=== PATIENT | male | born 1955 | race Caucasian/White ===

== ENCOUNTER 2021-03-29 13:22 | Emergency (ER) | payer OTHER, MEDICARE ==
[~2021-03-29] VITALS: Ht 175.3 cm; Wt 95.5 kg
[~2021-03-29 13:22] MED LIST: ASPI81CH49 PO; ATOR40TA75 PO; CELE40TA PO; COLA100C5 PO; HYDR-2541 PO; LISI10TA22 PO; MILK120011 OR; MIRA33504 PO; NORV5TAB PO; OXYC-403 PO; ROXI1TAB2 PO; SENO8.6T5 PO; TRAZ-257 PO; TYLE325T5 PO
--- OUTSIDE RECORDS SUMMARY | 2021-03-29 13:31 | CCD ---
Author Author [facility] Address Unknown Phone Unavailable Care Team Providers Care Canopy Inspector Name Role Phone DUSTY AMATO MD Unavailable Unavailable DUSTY AMATO MD Unavailable Unavailable DUSTY AMATO MD Unavailable Unavailable DUSTY AMATO MD Unavailable Unavailable DUSTY AMATO MD Unavailable Unavailable DUSTY AMATO MD Unavailable Unavailable DUSTY AMATO MD Unavailable Unavailable DUSTY AMATO MD Unavailable Unavailable DUSTY AMATO MD Unavailable Unavailable DUSTY AMATO MD Unavailable Unavailable DUSTY AMATO MD Unavailable Unavailable DUSTY AMATO MD Unavailable Unavailable DUSTY AMATO MD Unavailable Unavailable DUSTY AMATO MD Unavailable Unavailable DUSTY AMATO MD Unavailable Unavailable DUSTY AMATO MD Unavailable Unavailable VANWAGNER, OSKAR DO Unavailable Unavailable VANWAGNER, OSKAR DO Unavailable Unavailable VANWAGNER, OSKAR DO Unavailable Unavailable VANWAGNER, OSKAR DO Unavailable Unavailable VANWAGNER, OSKAR DO Unavailable Unavailable VANWAGNER, OSKAR DO Unavailable Unavailable VANWAGNER, OSKAR DO Unavailable Unavailable VANWAGNER, OSKAR DO Unavailable Unavailable VANWAGNER, OSKAR DO Unavailable Unavailable VANWAGNER, OSKAR DO Unavailable Unavailable VANWAGNER, OSKAR DO Unavailable Unavailable VANWAGNER, OSKAR DO Unavailable Unavailable VANWAGNER, OSKAR DO Unavailable Unavailable VANWAGNER, OSKAR DO Unavailable Unavailable VANWAGNER, OSKAR DO Unavailable Unavailable VANWAGNER, OSKAR DO Unavailable Unavailable Donita Lopez JR, MD Unavailable Unavailable Donita Lopez JR, MD Unavailable Unavailable Donita Lopez JR, MD Unavailable Unavailable Donita Lopez JR, MD Unavailable Unavailable Donita Lopez JR, MD Unavailable Unavailable Donita Lopez JR, MD Unavailable Unavailable Donita Lopez JR, MD Unavailable Unavailable Donita Lopez JR, MD Unavailable Unavailable Jessica VANCE S Tong BENSON Unavailable Unavailable Lopez JR, S Tong BENSON Unavailable Unavailable Jessica VANCE S Tong BENSON Unavailable Unavailable Jessica VANCE S Tong BENSON Unavailable Unavailable Lopez JR, S Tong BENSON Unavailable Unavailable Lopez JR, S Tong BENSON Unavailable Unavailable Lopez JR, S Tong BENSON Unavailable Unavailable Lopez JR, S Tong BENSON Unavailable Unavailable Lopez JR, S Tong BENSON Unavailable Unavailable Jessica VANCE S Tong BENSON Unavailable Unavailable Lopez JR, S Tong BENSON Unavailable Unavailable EMILY, M.D. PULIDO M.D. Unavailable Unavailable EMILY, M.D. PULIDO M.D. Unavailable Unavailable EMILY, M.D. PULIDO M.D. Unavailable Unavailable EMILY, M.D. PULIDO M.D. Unavailable Unavailable EMILY, M.D. PULIDO M.D. Unavailable Unavailable EMILY, M.D. PULIDO M.D. Unavailable Unavailable EMILY, M.D. PULIDO M.D. Unavailable Unavailable EMILY, M.D. PULIDO M.D. Unavailable Unavailable EMILY, M.D. PULIDO M.D. Unavailable Unavailable EMILY, M.D. PULIDO M.D. Unavailable Unavailable EMILY, M.D. PULIDO M.D. Unavailable Unavailable EMILY, M.D. PULIDO M.D. Unavailable Unavailable EMILY, M.D. PULIDO M.D. Unavailable Unavailable EMILY, M.D. PULIDO M.D. Unavailable Unavailable Emily, Pulido Unavailable Unavailable Tiffanie Donell DO Unavailable Unavailable [place], Donell DO Unavailable Unavailable Tiffanie Donell DO Unavailable Unavailable [place] Donell DO Unavailable Unavailable O'DEREJE, OLGA OD Unavailable Unavailable O'DEREJE, OLGA OD Unavailable Unavailable O'DEREJE, OLGA OD Unavailable Unavailable O'DEREJE, OLGA OD Unavailable Unavailable O'DEREJE, OLGA OD Unavailable Unavailable O'DEREJE, OLGA OD Unavailable Unavailable Esa Sánchez MD Unavailable Unavailable Esa Sánchez MD Unavailable Unavailable sEa Sánchez MD Unavailable Unavailable Esa Sánchez MD Unavailable Unavailable Esa Sánchez MD Unavailable Unavailable Esa Sánchez MD Unavailable Unavailable Esa Sánchez MD Unavailable Unavailable Esa Sánchez MD Unavailable Unavailable Esa Sánchez MD Unavailable Unavailable Esa Sánchez MD Unavailable Unavailable Esa Sánchez MD Unavailable Unavailable Esa Sánchez MD Unavailable Unavailable Esa Sánchez MD Unavailable Unavailable Esa Sánchez MD Unavailable Unavailable Esa Sánchez MD Unavailable Unavailable Esa Sánchez MD Unavailable Unavailable Esa Sánchez MD Unavailable Unavailable Esa Sánchez MD Unavailable Unavailable Esa Sánchez MD Unavailable Unavailable Esa Sánchez MD Unavailable Unavailable Esa Sánchez MD Unavailable Unavailable Lent, E [place] LOG INSPECTOR Unavailable Unavailable Lent, E [place] LOG INSPECTOR Unavailable Unavailable Maher, L Man PA Unavailable Unavailable Maher, L Man PA Unavailable Unavailable Maher, L Man PA Unavailable Unavailable Sienkiewycz, L Sariah JOURNEYMAN LINEMAN Unavailable Unavailable Sienkiewycz, L Sariah JOURNEYMAN LINEMAN Unavailable Unavailable Sienkiewycz, L Sariah JOURNEYMAN LINEMAN Unavailable Unavailable Sienkiewycz, L Sariah JOURNEYMAN LINEMAN Unavailable Unavailable Sienkiewycz, L Sariah JOURNEYMAN LINEMAN Unavailable Unavailable Sienkiewycz, L Sariah JOURNEYMAN LINEMAN Unavailable Unavailable Sienkiewycz, L Sariah JOURNEYMAN LINEMAN Unavailable Unavailable BROUGHAL, C GRACE PA Unavailable Unavailable BROUGHAL, C GRACE PA Unavailable Unavailable BROUGHAL, C GRACE PA Unavailable Unavailable BROUGHAL, C GRACE PA Unavailable Unavailable BROUGHAL, C GRACE PA Unavailable Unavailable BROUGHAL, C GRACE PA Unavailable Unavailable Layne, G Dalkeith DO Unavailable Unavailable Layne, G Dalkeith DO Unavailable Unavailable Layne, G Dalkeith DO Unavailable Unavailable Layne, G Dalkeith DO Unavailable Unavailable Layne, G Dalkeith DO Unavailable Unavailable Layne, G Dalkeith DO Unavailable Unavailable Esa Sánchez MD Unavailable Unavailable Esa Sánchez MD Unavailable Unavailable Esa Sánchez MD Unavailable Unavailable Esa Sánchez MD Unavailable Unavailable Esa Sánchez MD Unavailable Unavailable Esa Sánchez MD Unavailable Unavailable Esa Sánchez MD Unavailable Unavailable Esa Sánchez MD Unavailable Unavailable Esa Sánchez MD Unavailable Unavailable Esa Sánchez MD Unavailable Unavailable Esa Sánchez MD Unavailable Unavailable Esa Sánchez MD Unavailable Unavailable KimberlyEsa rodríguez MD Unavailable Unavailable Kimberly, Esa Abe BENSON Unavailable Unavailable Kimberly, Esa Abe BENSON Unavailable Unavailable Kimberly, Esa Abe BENSON Unavailable Unavailable Kimberly, Esa Abe BENSON Unavailable Unavailable Kimberly, Esa Abe BENSON Unavailable Unavailable Kimberly, Esa Abe BENSON Unavailable Unavailable Kimberly, Esa Abe BENSON Unavailable Unavailable Kimberly, Esa Abe BENSON Unavailable Unavailable Re-disclosure Warning The records that you are about to access may contain information from federally-assisted alcohol or drug abuse programs. If such information is present, then the following federally mandated warning applies: This information has been disclosed to you from records protected by federal confidentiality rules (42 CFR part 2). The federal rules prohibit you from making any further disclosure of this information unless further disclosure is expressly permitted by the written consent of the person to whom it pertains or as otherwise permitted by 42 CFR part 2. A general authorization for the release of medical or other information is NOT sufficient for this purpose. The Federal rules restrict any use of the information to criminally investigate or prosecute any alcohol or drug abuse patient.The records that you are about to access may contain highly sensitive health information, the redisclosure of which is protected by Article 27-F of the [facility] Public Health law. If you continue you may have access to information: Regarding HIV / AIDS; Provided by facilities licensed or operated by the [facility] Office of Mental Health; or Provided by the [facility] Office for People With Developmental Disabilities. If such information is present, then the following [facility] mandated warning applies: This information has been disclosed to you from confidential records which are protected by state law. State law prohibits you from making any further disclosure of this information without the specific written consent of the person to whom it pertains, or as otherwise permitted by law. Any unauthorized further disclosure in violation of state law may result in a fine or shelter sentence or both. A general authorization for the release of medical or other information is NOT sufficient authorization for further disc losure. Family History Family Member Name Family Member Gender Family Member Status Date o f Status Description Data Source(s) Unknown Unknown Problem MEDENT (Jeanette Olsen MD) Unknown Unknown Problem MEDENT (Jeanette Olsen MD) Encounters Encounter Providers Location Date Indications Data Source(s ) Outpatient Attender: Man PATEL CPSCAORT-CPSOMP 03/11 01:18:00 PM EST - 03/22/2021 01:19:00 PM EST [facility] Patient discharged. Outpatient Attender: Tong Lopez JR CPSCAORT-CPSCAORT 1 05/18/2020 09:02:00 AM EST - 03/18/2021 09:03:00 AM EST [facility] Patient discharged. 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 Outpatient Attender: [facility] 02[facility]08 10:25:00 AM EDT - 02/25/2021 10:26:00 AM EDT [facility] Patient discharged. Outpatient Attender: Tong Lopez JR CPSCAORT-CPSCAORT 1 10:23:00 AM EDT - 02/22/2021 10:24:00 AM EDT [facility] Patient discharged. Outpatient Attender: OLGA FOWLER OD CPSCAORT-CPSLAOPT 08:31:00 AM EDT - 02/14/[facility] 08[facility]32[facility]. [facility]patient Attender: Abe Sánchez MD SURG-[facility] 02/05/2021 01:48:00 PM EDT [facility]. Outpatient Attender: Abe Sánchez MD [facility]G-[facility] 02/05/2021 01:48:00 PM EDT [facility]. Outpatient Attender: Man PATEL CPSCAORT-CPSOMP 01/10 11:31:00 AM EDT - 01/30/2021 11:32:00 AM EDT [facility] Patient discharged. Outpatient Attender: OSKAR PLASCENCIA DO CPSCAORT-REFOPS 01/10 10:08:00 AM EDT - 01/29/2021 10:09:00 AM EDT SAME DAY POST OP [facility] SAME DAY POST OP Patient discharged. Outpatient Attender: OSKAR PLASCENCIA DO CPSCAORT-SDCLOC 01/10 07:48:00 AM EDT - 01/29/2021 09:32:00 AM [facility] Patient [facility] Outpatient Attender: GRACE PATEL CPSCAORT-LABCOVWAR 0 01/26/2021 08:01:00 AM EDT - 01/26/2021 08:02:00 AM EDT [facility] Patient discharged. 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 Outpatient Attender: Abe Sánchez MD [facility]: [facility]/09/2021 10:36:00 AM [facility] Outpatient Attender: OSKAR MENSAHCAORT-CPSLAOPT 07:55:00 AM EDT - 01/08/2021 07:56:00 AM EDT [facility] Patient discharged. 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 Outpatient Attender: Man PATEL CPSCAORT-CPSOMPMC 12/09 11:48:00 AM EDT - 12/25/2020 11:49:00 AM EDT [facility] Patient discharged. Outpatient Attender: Man PATEL CPSCAORT-CPSOMPMC 11/09 10:56:00 AM EDT - 11/27/2020 10:57:00 AM EDT [facility] Patient discharged. Outpatient Attender: OSKAR PLASCENCIA DO CPSCAORT-CPSLAOPT 07:12:00 AM EDT - 11/14/2020 07:13:00 AM EDT [facility] Patient discharged. Outpatient Attender: Man PATEL CPSCAORT-CPSOMPMC 05/2020 11:01:00 AM EDT - 11/08/2020 11:02:00 AM EDT [facility] Patient discharged. Outpatient Attender: Abe Sánchez MD SURG-SYED 09/11/2020 03:34:00 P M EDT [facility]. Outpatient Attender: Ashok Diaz MDAttender: ASHOK Victor PSCAORT-SDCLOC 08/20/2020 11:13:00 AM EDT - 08/20/2020 01:02:00 PM EDT DEGENERATIVE DISC DISEASE, LUMBAR [facility] DEGENERATIVE DISC DISEASE, LUMBAR Patient discharged. Outpatient Attender: GRACE PATEL CPSCAORT-LABCOVWAR 0 08/16/2020 08:16:00 AM EDT - 08/16/2020 08:17:00 AM EDT [facility] Patient discharged. Outpatient Attender: GRACE SHARIFCAORT-LABCOVWAR 0 08/16/2020 08:10:00 AM EDT - 08/16/2020 08:11:00 AM EDT PREOP [facility] PREOP Patient discharged. Outpatient Attender: ASHOK DIAZ M.D. CPSCAORT-SDCLOC 021 08:08:00 AM EDT - 07/25/2020 08:09:00 AM EDT DEGENERATIVE DISC DISEASE, LUMBAR [facility] DEGENERATIVE DISC DISEASE, LUMBAR Patient discharged. Outpatient Attender: GRACE PATEL CPSCAORT-LABCOVWAR 0 07/20/2020 09:29:00 AM EST - 07/20/2020 09:30:00 AM EST PREOP [facility] PREOP Patient discharged. Outpatient Attender: Ashok Moreauender: ASHOK Victor PSCAORT-SDCLOC 07/18/2020 07:10:00 AM EST - 07/18/2020 08:40:00 AM EST DEGENERATIVE DISC DISEASE, LUMBAR [facility] DEGENERATIVE DISC DISEASE, LUMBAR Patient discharged. Outpatient Attender: GRACE PATEL CPSCAORT-LABCOVWAR 0 07/13/2020 09:39:00 AM EST - 07/13/2020 09:40:00 AM EST PRE OP [facility] PRE OP Patient discharged. Outpatient Attender: ASHOK DIAZ M.D. CPSCAORT-CPSOMP 07/05 09:28:00 AM EST - 07/05/2020 09:29:00 AM EST [facility] Patient discharged. Outpatient Attender: ASHOK SHARIFCAORT-SDCLOC 021 11:56:00 AM EST - 05/30/2020 01:23:00 PM EST DEGENERATIVE DISC DISEASE, LUMBAR [facility] DEGENERATIVE DISC DISEASE, LUMBAR Patient discharged. Outpatient Attender: Ashok [place] er: ASHOK DIAZ M.D.Referrer: GRACE PATEL CPSCAORT-LABCOVWAR 05/25/2020 09:50:00 AM EST - 05/25/2020 09:51:00 AM EST PREOP COVID 19 [facility] PREOP COVID 19 Patient discharged. Outpatient Attender: Abe Sánchez MD [facility] 05/17/2020 10:31:[address] [facility]. Outpatient Attender: Sariah Joyner NP SURG-NPLAB 04/29/2020 11:45:00 AM EST [facility]. Outpatient Attender: ASHOK DIAZ M.D. CPSCAORT-CPSOMP 04/10 09:46:00 AM EST - 04/10/2020 09:47:00 AM EST [facility] Patient discharged. Outpatient Attender: Abdiel Tillman DO SURG-ULTRA 02/09/2020 02:20:00 PM EDT [facility] Outpatient Attender: Abdiel Tillman DOAttender: DUSTY AMATO MD KC-SURG.LSS 01/27/2020 12:17:00 PM EDT [facility] Emergency Attender: Shanta Yanez FNPAttender: Donell Tiffanie DO CPSCAORT-ED 01/13/2020 02:17:00 PM EDT - 01/13/2020 03:56:00 PM EDT WOUND CHECK [facility] WOUND CHECK Patient discharged. Immunizations Vaccine Date Status Description Data Source(s) COVID-19 VACCINE Pfizer 02/28/2021 12:00:00 AM EDT completed [facility] Vaccine Series Complete: YESThis Data wa s Submitted to [facility] Via [facility]. COVID-19 VACCINE Pfizer 07/23/2020 12:00:00 AM EDT completed [facility] Vaccine Series Complete: YESThis Data wa s Submitted to [facility]. Medications Medication Brand Name Start Date Product Form Dose Route Admi nistrative Instructions Pharmacy Instructions Status Indications Reaction Description Data Source(s) Acetaminophen 325 MG / Hydrocodone Bitartrate 7.5 MG O ral Tablet 7.5-325 mg HYDROCODONE/ACETAMINOPHEN 02/28/2021 12:00:00 AM EDT tablet 90 TAKE ONE TABLET BY MOUTH EVERY 8 HOURS NEEDED MAX=3TABS/DAY TAKE ONE TABLET BY MOUTH EVERY 8 HOURS NEEDED MAX=3TABS/DAY SOLD: 02/28/2021 [facility] Acetaminophen 325 MG / Hydrocodone Bitartrate 7.5 MG O ral Tablet 7.5-325 mg HYDROCODONE/ACETAMINOPHEN 01/30/2021 12:00:00 AM EDT tablet 90 TAKE ONE TABLET BY MOUTH EVERY 8 HOURS NEEDED MAX=3TABS/DAY TAKE ONE TABLET BY MOUTH EVERY 8 HOURS NEEDED MAX=3TABS/DAY SOLD: 01/30/2021 [facility] Acetaminophen 325 MG / Hydrocodone Bitartrate 7.5 MG O ral Tablet 7.5-325 mg HYDROCODONE/ACETAMINOPHEN 12/31/2020 12:00:00 AM EDT tablet 90 TAKE ONE TABLET BY MOUTH EVERY 8 HOURS NEEDED MAX=3TABS/DAY TAKE ONE TABLET BY MOUTH EVERY 8 HOURS NEEDED MAX=3TABS/DAY SOLD: 12/31/2020 [facility] Acetaminophen 325 MG / Hydrocodone Bitartrate 7.5 MG O ral Tablet 7.5-325 mg HYDROCODONE/ACETAMINOPHEN 12/02/2020 12:00:00 AM EDT tablet 90 TAKE ONE TABLET BY MOUTH EVERY 8 HOURS NEEDED MAX=3TABS/DAY TAKE ONE TABLET BY MOUTH EVERY 8 HOURS NEEDED MAX=3TABS/DAY SOLD: 12/02/2020 [facility] Acetaminophen 325 MG / Hydrocodone Bitartrate 7.5 MG O ral Tablet 7.5-325 mg HYDROCODONE/ACETAMINOPHEN 11/02/2020 12:00:00 AM EDT tablet 90 TAKE ONE TABLET BY MOUTH EVERY 8 HOURS NEEDED MAX=3TABS/DAY TAKE ONE TABLET BY MOUTH EVERY 8 HOURS NEEDED MAX=3TABS/DAY SOLD: 11/03/2020 [facility] Acetaminophen 325 MG / Hydrocodone Bitartrate 7.5 MG O ral Tablet 7.5-325 mg HYDROCODONE/ACETAMINOPHEN 10/04/2020 12:00:00 AM EDT tablet 90 TAKE ONE TABLET BY MOUTH EVERY 8 HOURS NEEDED MAX=3TABS/DAY TAKE ONE TABLET BY MOUTH EVERY 8 HOURS NEEDED MAX=3TABS/DAY SOLD: 10/04/2020 [facility] Acetaminophen 325 MG / Hydrocodone Bitartrate 7.5 MG O ral Tablet 7.5-325 mg HYDROCODONE/ACETAMINOPHEN 09/05/2020 12:00:00 AM EDT tablet 90 TAKE ONE TABLET BY MOUTH EVERY 8 HOURS NEEDED MAX=3TABS/DAY TAKE ONE TABLET BY MOUTH EVERY 8 HOURS NEEDED MAX=3TABS/DAY SOLD: 09/05/2020 [facility] 7.5-325 mg 08/06/2020 12:00:00 AM EDT tablet 90 TAKE ONE TABLET BY MOUTH EVERY 8 HOURS NEEDED MAX=3TABS/DAY TAKE ONE TABLET BY MOUTH EVERY 8 HOURS A S NEEDED MAX=3TABS/DAY SOLD: 08/07/2020 [facility] 7.5-325 mg 07/05/2020 12:00:00 AM EST tablet 90 TAKE ONE TABLET BY MOUTH EVERY 8 HOURS NEEDED MAX=3TABS/DAY TAKE ONE TABLET BY MOUTH EVERY 8 HOURS A S NEEDED MAX=3TABS/DAY SOLD: 07/06/2020 [facility] 500 mg 06/29/2020 12:00:00 AM EST tablet 30 TAKE ONE TABLET BY MOUTH THREE TIMES A DAY TAKE ONE TABLET BY MOUTH THREE TIMES A DAY SOLD: 06/30/2020 [facility] 7.5-325 mg 06/17/2020 12:00:00 AM EST tablet 21 TAKE 1 TABLET BY MOUTH EVERY 8 HOURS NEEDED MAX = 7 TABS/DAY TAKE 1 TABLET BY MOUTH EVERY 8 HOURS NEEDED MAX = 7 TABS/DAY SOLD: 06/17/2020 [facility] 7.5-325 mg 05/18/2020 12:00:00 AM EST tablet 90 TAKE ONE TABLET BY MOUTH EVERY 8 HOURS NEEDED MAX=3TABS/DAY TAKE ONE TABLET BY MOUTH EVERY 8 HOURS A S NEEDED MAX=3TABS/DAY SOLD: 05/19/2020 [facility] 7.5-325 mg 04/19/2020 12:00:00 AM EST tablet 90 TAKE ONE TABLET BY MOUTH EVERY 8 HOURS NEEDED MAX=3TABS/DAY TAKE ONE TABLET BY MOUTH EVERY 8 HOURS A S NEEDED MAX=3TABS/DAY SOLD: 04/19/2020 [facility] 500 mg 04/10/2020 12:00:00 AM EST tablet 90 TAKE ONE TABLET BY MOUTH THREE TIMES A DAY TAKE ONE TABLET BY MOUTH THREE TIMES A DAY SOLD: 04/19/2020 [facility] 5-325 mg 03/20/2020 12:00:00 AM EST tablet 90 TAKE ONE TABLET BY MOUTH EVERY 8 HOURS NEEDED MAX=3TABS/DAY TAKE ONE TABLET BY MOUTH EVERY 8 HOURS A S NEEDED MAX=3TABS/DAY SOLD: 03/21/2020 [facility] 5-325 mg 02/10/2020 12:00:00 AM EDT tablet 90 TAKE ONE TABLET BY MOUTH EVERY 8 HOURS NEEDED, MAXIMUM DAILY DOSE = 3 TAKE ONE TABLET BY MOUTH EVERY 8 HOURS NEEDED, MAXIMUM DAILY DOSE = 3 SOLD: 02/10/2020 [facility] Insurance Providers Payer name Policy type / Coverage type Policy ID Covered constitution party ID Covered constitution party's relationship to long Policy Long Plan Information [id number] SP [id number] SP [id number] MEDICARE/[employer] [place] [id number] SP [id number] [facility]IC[facility] [id number] SP [id number] MEDICARE [place] [id number] SP [id number] [place]ICARE [place] [id number] SP [id number] MEDICARE A [id number] Self [id number] MEDICARE [place] [id number] SP [id number] [employer] OPTIONS [id number] SP [id number] MEDICARE [place] [id number] SP [id number] MEDICARE/[facility] G[facility] SVCS [id number] SP [id number] AAR HE[employer] CARE OPTIONS [id number] SP [id number] For Life WPS Medigap Part B [id number] Self [id number] Medicare [place] Medigap Part B [id number] Self [id number] [facility] Program [employer] [id number] Self [id number] For Life WPS Medigap Part B [id number] Self [id number] Medicare [place] Medigap Part B [id number] Self [id number] Milk [employer] Deal [id number] Self [id number] [facility] OPTIONS [id number] SP [id number] SP [id number] MEDICARE/[facility] SVCS [id number] SP [id number] VA - NON VA CARE [id number] SP [id number] MEDICARE [place] [id number] SP [id number] For Life WPS Medigap Part B [id number] Self Medicare [place] Medigap Part B [id number] Self Veterans Choice Program Commercial [id number] Self [facility] [id number] SP [id number] [facility] [id number] Retired [id number] MEDICARE [id number] SP [id number] A [facility] [id number] Retired [id number] MEDICARE [id number] Retired [id number] FOR LIFE [id number] Retired [id number] [employer] CLAIMS-OPTUM [id number] SP [id number] SP [id number] VA - NON VA CARE [id number] SP [id number] MEDICARE B [place] [id number] SP [id number] Problems, Conditions, and Diagnoses Code Display Name Description Problem Type Effective Dates Data Source(s) R41.3 Other amnesia OTHER AMNESIA Diagnosis 03/04/2021 09:00:00 AM [facility] G46.4 Cerebellar stroke syndrome CEREBELLAR STROKE SYNDROME Diagnosis 03/04/2021 09:00:00 AM [facility] Z51.81 Encounter for therapeutic drug level mon itoring ENCOUNTER FOR THERAPEUTIC DRUG LEVEL MONITORING Diagnosis 02/25/2021 10:25:00 AM [facility] Z98.890 Other specified postprocedural states OT HER SPECIFIED POSTPROCEDURAL STATES Diagnosis 02/25/2021 10:25:00 AM [facility] M79.18 MYALGIA, OTHER SITE MYALGIA, OTHER SITE Diagnosis 1 10:25:00 AM [facility] M47.816 Spondylosis without myelopathy or radicu lopathy, lumbar region SPONDYLOSIS W/O MYELOPATHY OR RADICULOPATHY, LUMBAR REGION Diagnosis 02/25/2021 10:25:00 AM [facility] M99.83 Other biomechanical lesions of lumbar re gion OTHER BIOMECHANICAL LESIONS OF LUMBAR REGION Diagnosis 02/25/2021 10:25:00 AM [facility] M54.16 Radiculopathy, lumbar region RADICULOPATHY, LUMBAR REG ION Diagnosis 02/25/2021 10:25:00 AM [facility] M51.36 Other intervertebral disc degeneration, lumbar region OTHER INTERVERTEBRAL DISC DEGENERATION, LUMBAR REGION Diagnosis 2020 10:25:00 AM [facility] G89.4 Chronic pain syndrome CHRONIC PAIN SYNDROME Diagnosis 02/25/2021 10:25:00 AM [facility] Y99.8 Other external cause status OTHER EXTERNAL CAUSE STATU S Diagnosis 02/22/2021 10:23:00 AM [facility] Y92.[address] or not applicable UNSPECIFIED PLACE OR NOT APPLICABLE Diagnosis 02/22/2021 10:23:00 AM [facility] X50.0XXA Overexertion from strenuous movement or load, initial encounter OVEREXERTION FROM STRENUOUS MOVEMENT OR LOAD, INIT Diagnosis 10:23:00 AM [facility] W19.XXXA Unspecified fall, initial encounter UNSP ECIFIED FALL, INITIAL ENCOUNTER Diagnosis 02/22/2021 10:23:00 AM [facility] S86.811A Strain of other muscle(s) an d tendon(s) at lower leg level, right leg, initial encounter STRAIN OF MUSC/TEND AT LOWER LEG LEVEL, RIGHT LEG, INI T Diagnosis 02/22/2021 10:23:00 AM [facility] Z96.1 Presence of intraocular lens PRESENCE OF INTRAOCULAR L ENS Diagnosis 02/14/2021 08:31:00 AM [facility] M25.561 Pain in right knee PAIN IN RIGHT KNEE [facility]891 Personal history of nicotine dependence PERSONAL HISTORY OF NICOTINE DEPENDENCE Diagnosis 01/29/2021 07:48:00 AM [facility] Z86.73 Personal history of transien t ischemic attack (TIA), and cerebral infarction without residual deficits PRSNL HX OF TIA (TIA), AND CEREB INFRC W /O RESID DEFICITS Diagnosis 01/29/2021 07:48:00 AM [facility] E78.5 Hyperlipidemia, unspecified HYPERLIPIDEMIA, UNSPECIFIE D Diagnosis 01/29/2021 07:48:00 AM [facility] I10 Essential (primary) hypertension ESSENTIAL (PRIMARY) H YPERTENSION Diagnosis [facility] Pupillary abnormality, left eye PUPILLARY ABNORM ALITY, LEFT EYE Diagnosis 01/29/2021 07:48:00 AM [facility] H26.8 Other specified cataract OTHER SPECIFIED CATARACT Diag nosis 01/29/2021 07:48:00 AM [facility] H25.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, left eye COMBINED FORMS OF AGE- RELATED CATARACT, LEFT EYE Diagnosis 01/29/2021 07:48:00 AM [facility] H16.223 Keratoconjunctivitis sicca, not specifie d as Sjogren's, bilateral KERATOCONJUNCT SICCA, NOT SPECIFIED SJOGREN'S, BILATERAL Diagnosis 11/14/2020 07:12:00 AM [facility] E11.9 Type 2 diabetes mellitus without complic ations TYPE 2 DIABETES MELLITUS WITHOUT COMPLICATIONS Diagnosis 11/14/2020 07:12:00 AM [facility] M12.88 Other specific arthropathies , not elsewhere classified, other specified site OTH SPECIFIC ARTHROPATHIES, NEC, OTH SITE Diagnosis 08/20/2020 11:13:00 AM [facility] Z11.52 ENCOUNTER FOR SCREENING FOR COVID-19 ENC OUNTER FOR SCREENING FOR COVID-19 Diagnosis 08/16/2020 08:10:00 AM [facility] M51.26 Other intervertebral disc displacement, lumbar region OTHER INTERVERTEBRAL DISC DISPLACEMENT, LUMBAR REGION Diagnosis 2020 08:08:00 AM [facility] 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, oral cavity, 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,ORAL CAV,& PHARYNX Diagnosis 07/18/2020 07:10:00 AM [facility] Z01.812 Encounter for preprocedural laboratory e xamination ENCOUNTER FOR PREPROCEDURAL LABORATORY EXAMINATION Diagnosis 07/13/2020 09:39:00 AM [facility] Surgeries/Procedures Procedure Description Date Indications Data Source(s) THER ACTV DIR PT CONTACT BY PROVIDER EACH 15 MIN THERAPEUTIC ACTIVITIES 03/04/2021 12:00:00 AM [facility] PHYSICAL PERFORMANCE TEST/YOU W/REPRT EA 15 MIN PHYSICAL PE RFORMANCE TEST 02/27/2021 12:00:00 AM [facility] OFFICE OUTPATIENT VISIT 10 MINUTES OFFICE/OUTPATIENT VISIT E ST 02/25/2021 12:00:00 AM [facility] OFFICE OUTPATIENT VISIT 5 MINUTES OFFICE/OUTPATIENT VISIT ES T 02/14/2021 12:00:00 AM [facility] 04258 THER IVNTJ EA ADDL 15 MIN 02/11/2021 12:00:00 AM [facility] 63589 THER IVNTJ 1ST 15 MIN 02/11/2021 12:00:00 AM [facility] GLUCOSE BLOOD REAGENT STRIP REAGENT STRIP/BLOOD GLUCOSE 01/10 12:00:00 AM [facility] Injection, fentanyl citrate, 0.1 mg 01/29/2021 12:00:0 0 AM [facility] Injection, midazolam hydrochloride, per 1 mg 12:00:00 AM [facility] Injection, lidocaine hcl for intravenous infusion, 10 mg 01/29/2021 12:00:00 AM [facility] XCAPSULAR CATARACT RMVL INSJ LENS PROSTH 1 STG XCAPSL CTRC R MVL CPLX WO ECP 01/29/2021 12:00:00 AM [facility] Replacement of Left Lens with Synthetic Substitute, Pe rcutaneous Approach REPLACEMENT OF LEFT LENS WITH SYNTH SUB, PERC APPROACH 01/29/2021 12:00:00 AM [facility] SELF-CARE/HOME MGMT TRAINING EACH 15 MINUTES SELF CARE MNGME NT TRAINING 01/22/2021 12:00:00 AM [facility] THER PX 1/> AREAS EACH 15 MIN NEUROMUSC REEDUCAJ NEUROMUSCUL AR REEDUCATION 01/11/2021 12:00:00 AM [facility] OPH BMTRY PRTL COHER INTRFRMTRY IO LENS PWR RUIZ OPHTHALMIC B IOMETRY 01/08/2021 12:00:00 AM [facility] 52483 OT EVAL HIGH COMPLEX 60 MIN 12/17/2020 12:00:00 AM [facility] US GUIDANCE NEEDLE PLACEMENT RS&I ECHO GUIDE FOR BIOPSY 11/09 12:00:00 AM [facility] INJECTION SINGLE/SWEEP PRESS OPERATOR TRIGGER POINT 3/> MUSCLES INJECT TRIGGE R POINTS 3/> 11/27/2020 12:00:00 AM [facility] Injection, ropivacaine hydrochloride, 1 mg 11/27/2020 12:00:00 AM [facility] Injection, methylprednisolone acetate, 40 mg 12:00:00 AM [facility] outpatient clinic visit for assessment and ma helen of a patient Hospital Outpatient Clinic Visit 11/08/2020 12:00:00 AM [facility] Unclassified drugs 08/20/2020 12:00:00 AM [facility] DSTR NROLYTC AGNT PARVERTEB FCT ADDL LMBR/SACRAL DESTROY L/S FACET JNT ADDL 08/20/2020 12:00:00 AM [facility] DSTR NROLY AGNT PARVERTEB FCT SNGL LMBR/SACRAL DESTROY LUM B/SAC FACET T 08/20/2020 12:00:00 AM [facility] Fluoroscopy of Lumbar Facet Joint(s) FLUOROSCOPY OF LUMBAR F ACET JOINT(S) 08/20/2020 12:00:00 AM [facility] Introduction of Destructive Agent into P eripheral Nerves and Plexi, Percutaneous Approach INTRODUCE DESTR AGENT IN PERIPH NRV, PLEXI, PERC 08/20 12:00:00 AM [facility] C9803 Sars-cov-2 Hospital outpt clinic visit s pecimen collection 07/13/2020 12:00:00 AM [facility] U0003 SARS-CoV-2 detection by nucleic acid 07/13/2020 12:00: 00 AM [facility] Low osmolar contrast material, 300-399 mg/ml iodine co ncentration, per ml Locm 300-399mg/ml iodine,1ml Long 05/30/2020 12:00:00 AM [facility] Injection, methylprednisolone acetate, 80 mg 12:00:00 AM [facility] 64213 NJX INTERLAMINAR LMBR/SAC 05/30/2020 12:00:00 AM [facility] Introduction of Anesthetic Agent into Spinal Canal, Pe rcutaneous Approach INTRODUCTION OF ANESTHETIC INTO SPINAL CANAL, PERC APPROACH 05/30/2020 12:00:00 AM [facility] Introduction of Anti-inflammatory into Spinal Canal, P ercutaneous Approach INTRODUCTION OF ANTI-INFLAM INTO SPINAL CANAL, PERC APPROACH 05/30/2020 12:00:00 AM [facility] 71257 05/25/2020 12:00:00 AM [facility] Results ID Date Data Source [id number] 02/05/2021 02:33:00 PM EDT [facility] RIGHT KNEEFindings/Impression: There is minimal loss of joint space in the medialcompartment. Mild degenerative osteophytes are noted at the tibialspines.A small joint effusion is noted. No fracture or dislocation.Dictated on 02/05/21 1433 by Valente Grayson M.D.Transcribed on 02/06/21 0749 by Cynthia Rea by Valente Grayson M.D. on 02/06/21 1050Sign by: Valente Grayson M.D. Name Value Range Interpretation Code Description Data Angelica rce(s) Supporting Document(s) ID Date Data Source [id number] 01/29/2021 11:33:00 AM EDT [facility] Name: BRUNO PALAFOX : 955 Age/Sex: 65M Attending Physician: Oskar Plascencia DO Med Rec #: [id number] Admission Date: Room #: Admitting Physician: Report Number: [id number] _ cc: Abe Sánchez MD Send Report To: Report Status - Signed OPERATIVE NOTE DATE OF SURGERY: January 29, 2021 SURGEON: Oskar Plascencia D.O. ANESTHESIA: MAC. PREOPERATIVE DIAGNOSIS: Cataract, left eye. POSTOPERATIVE DIAGNOSIS: Cataract, left eye. OPERATIVE PROCEDURE: In the preoperative area, it was again discussed with the patient the risks, benefits, and alternatives to cataract extraction including, but not limited to: bleeding, infection, loss of vision, need for additional surgery, retinal detachment, retinal edema, corneal clouding, and intractable elevated IOP. In addition, I discussed with the patient the possible need for pupil profiler operator with his poor preoperative pupillary dilatation. The patient understands and wished to proceed. The forehead was taped for stabilization. The patient was then wheeled to the operating room where the left eye was prepped with Betadine solution and draped in the usual sterile fashion. A 75 blade was used to make a paracentesis incision. Preservative-free lidocaine 1% was injected in the anterior chamber followed by viscoelastic to maintain the anterior chamber. The globe was stabilized and a keratome was usedto make a triplanar clear corneal incision in the opposite temporal quadrant at the paracentesis. The pupil was found to be poorly dilated approximately 2.5 mm. As a result a Malyugin ring was placed in the anterior chamber to dilate and stabilize the pupil. This was done without complication. A cystotome was then used to make an anterior capsular flap and Utrata forceps were then used tomake a continuous curvilinear capsulorrhexis. BSS was then used to hydrate the nucleus and mobilize the nucleus. Phacoemulsification was then performed in a divide and conquer manner with a CDE of 9.36. Irrigation/aspiration tip was then used to remove the remaining cortical remnants. The posterior capsular bagwas inspected and found to be intact and then reinflated with viscoelastic. The AU00T0 +23.0 diopter lens was then inserted into the posterior capsular bag. The lens was found to be in good position. The Malyugin ring was removed from the anterior chamber. The lens remained in good position. Irrigation/aspiration was used to remove the viscoelastic in the anterior chamber and in the bag. BSS was then used to hydrate the wounds. Please note at this point 0.1 mL of sterile Vigamox mixed in a 1:2 solution withBSS was injected into the anterior chamber through the paracentesis wound. Thiswas done without complication. The anterior chamber was well formed with the intraocular lens in good position and the wounds were without leakage. At the end of the case, the patient received one drop of antibiotic and one dropof steroid in the left eye and the left eye was then shielded. The patient tolerated the procedure well and left the operating room in good condition. REPORT SIGNATURE ON FILE Dictated By: Oskar Plascencia, <Electronically signed by Oskar Plascencia DO> 01/30/21 1142 Dictation Date/Time: 01/29/21 0912 Transcribed Date/Time: 01/29/21 1133/[facility] Name Value Range Interpretation Code Description Data Angelica rce(s) Supporting Document(s) ID Date Data Source [id number] 01/29/2021 08:27:00 AM EDT [facility] Name Value Range Interpretation Code Description Data Angelica rce(s) Supporting Document(s) LAB Glucose,Fingerstick 113 mg/dL 70-110 Above high normal [facility] ID Date Data Source [id number] 01/26/2021 08:10:00 AM EDT [facility] Name Value Range Interpretation Code Description Data Angelica rce(s) Supporting Document(s) Respiratory specimen severe acute respir atory syndrome coronavirus 2 (SARS-CoV-2) RNA Negative (qualifier value) [facility] This lab was ordered by [facility] osoliver and reported by [facility]. ID Date Data Source [id number] 01/26/2021 06:48:00 PM EDT [facility] COVID-19 Specimen Source NASOPHARYNGEAL Testing was performed using the Aptima SARS-CoV-2 Assay (LabArchives System) Methodology: Nucleic Acid Amplification Business Continuity Management Director RT-PCR Mediated Amplification (TMA) and Dual Kinetic Assay (DKA) Negative results do not preclude SARS-CoV-2 infection and should not be used as the sole basis for patient management decisions. Negative results must be combined with clinical observations, patient history, and epidemiological information. This test has been authorized by FDA under an (Emergency Use Authorization) EUA for use by authorized laboratories for individuals who are suspected of COVID-19 by their healthcare provider. This test is only authorized for the duration of the declaration that circumstances exist justifying the authorization of emergency use of in vitro diagnostic tests for detection and/or diagnosis of SARS-CoV-2. Fact sheets for this EUA assay can be found at the following links EUA Fact Sheet for Providers: https://www.fda.gov/media/457489/download EUA Fact Sheet for Patients: https://www.fda.gov/media/224506/download THIS IS A STATE REPORTABLE COMMUNICABLE DISEASE. Test Performed By: [facility] [address] [place] [address] Director: Vania Crook MD Name Value Range Interpretation Code Description Data Angelica rce(s) Supporting Document(s) ID Date Data Source [id number] 01/09/2021 11:30:00 AM EDT [facility] LEFT SHOULDER SERIESComparison is made t o 05/18/14.No fracture or dislocation is identified. The bones are osteopenic.There is some minimal joint space narrowing at the glenohumeral joint.There is some moderate to severe spurring at the superolateral aspect ofthe humeral head. There is a round lucent area in this region that islikely a subchondral cyst measuring about 1.7 cm which is stable. Thespurring does appear worse. There are a few small calcificationsadjacent to the superolateral aspect of the humeral head consistent withmild calcific tendinitis versus loose bodies. There is some minimalspurring at the AC joint. The visualized portion of the left lung isclear.IMPRESSION: NO FRACTURE/DISLOCATION. DJD DESCRIBED. A 1.7 CM ROUNDLUCENT AREA THAT IS AT THE SUPEROLATERAL ASPECT OF THE HUMERAL HEAD THATIS STABLE, LIKELY FROM A BONE CYST.Dictated on 01/09/21 1130 by Ger Ybarra M.D.Transcribed on 01/09/21 1247 by John Gregg by Ger Ybarra M.D. on 01/10/21 1057Sign by: Ger Ybarra M.D. Name Value Range Interpretation Code Description Data Angelica rce(s) Supporting Document(s) ID Date Data Source [id number] 09/11/2020 03:54:00 AM EDT [employer]. RIGHT TOEThere is no acute fracture or d islocation. There are moderatedegenerative changes best appreciated at the interphalangeal joint aswell as the first metatarsophalangeal joint with joint space narrowingand subchondral sclerosis. The bones are demineralized. There is asmall bony density adjacent to the distal aspect of the proximal phalanx.This may represent a sesamoid bone. There appears to be a separation ofthis apparent sesamoid bone but no significant sof tissue swelling tosuggest an acute process. If there is a history of trauma, follow-upimaging is suggested.IMPRESSION: DEGENERATIVE CHANGES. SEPARATION OF WHAT APPEARS TO BE ASESAMOID BONE ADJACENT TO THE DISTAL ASPECT OF THE PROXIMAL PHALANX. IFTHERE IS A HISTORY OF TRAUMA, FRACTURE IS NOT EXCLUDED.Dictated on 09/11/20 0354 by Pawel Peguero M.D.Transcribed on 09/12/20 07 by John Greggign by Pawel Peguero M.D. on 09/20/20 1019Sign by: Pawel Peguero M.D. Name Value Range Interpretation Code Description Data Angelica rce(s) Supporting Document(s) ID Date Data Source [id number] 08/20/2020 11:52:00 AM EDT [facility] Name Value Range Interpretation Code Description Data Angelica rce(s) Supporting Document(s) LAB Glucose,Fingerstick 100 mg/dL 70-110 Normal ( applies to non-numeric results) [facility] ID Date Data Source [id number] 08/21/2020 05:36:[address] [facility] Name: BRUNO PALAFOX : 955 Age/Sex: 65M Ordering Provider: Ashok Diaz MD Med Rec #: [id number] Reg Status: [facility] Room #: Date of Service: 08/20/20 Report Number: [id number] cc: Send Report To: [id number] XRP/XR C-Arm LOC Reason for exam: PAIN INJECTIONS FINDINGS: Fluoroscopy was used during the OR procedure performed same date of service. Forcomplete details, please see OP report. Fluoroscopy time in seconds: 8.2 Number of Exposures: 4 Time Portable Image Performed: Contrast Agent in ml: Method of Administration: REPORT SIGNATURE ON FILE Reported By: Ashok Diaz MD 08/21/20 0536 Dictation Date/Time: 08/20/20 1055 Transcribed Date/Time: 08/21/20 0536 Fraud Examiner: LYNN Name Value Range Interpretation Code Description Data Angeliac rce(s) Supporting Document(s) ID Date Data Source [id number] 08/16/2020 08:00:00 AM EDT [facility] Name Value Range Interpretation Code Description Data Angelica rce(s) Supporting Document(s) Respiratory specimen severe acute respir atory syndrome coronavirus 2 (SARS-CoV-2) RNA Negative (qualifier value) [facility] This lab was ordered by [facility] judith and reported by [facility]. ID Date Data Source [id number] 08/16/2020 05:35:00 PM EDT [facility] COVID-19 Specimen Source NASOPHARYNGEAL Testing was performed using the Aptima SARS-CoV-2 Assay (LabArchives System) Methodology: Nucleic Acid Amplification Business Continuity Management Director RT-PCR Mediated Amplification (TMA) and Dual Kinetic Assay (DKA) Negative results do not preclude SARS-CoV-2 infection and should not be used as the sole basis for patient management decisions. Negative results must be combined with clinical observations, patient history, and epidemiological information. This test has been authorized by FDA under an (Emergency Use Authorization) EUA for use by authorized laboratories for individuals who are suspected of COVID-19 by their healthcare provider. This test is only authorized for the duration of the declaration that circumstances exist justifying the authorization of emergency use of in vitro diagnostic tests for detection and/or diagnosis of SARS-CoV-2. Fact sheets for this EUA assay can be found at the following links EUA Fact Sheet for Providers: https://www.fda.gov/media/226958/download EUA Fact Sheet for Patients: https://www.fda.gov/media/486910/download THIS IS A STATE REPORTABLE COMMUNICABLE DISEASE. Test Performed By: [facility] [address] [place] [address] Director: Vania Crook MD Name Value Range Interpretation Code Description Data Angelica rce(s) Supporting Document(s) ID Date Data Source [id number] 07/20/2020 04:54:00 PM EST [facility] COVID-19 Specimen Source NASOPHARYNGEAL Testing was performed using the Aptima SARS-CoV-2 Assay (LabArchives System) Methodology: Nucleic Acid Amplification Business Continuity Management Director RT-PCR Mediated Amplification (TMA) and Dual Kinetic Assay (DKA) Negative results do not preclude SARS-CoV-2 infection and should not be used as the sole basis for patient management decisions. Negative results must be combined with clinical observations, patient history, and epidemiological information. This test has been authorized by FDA under an (Emergency Use Authorization) EUA for use by authorized laboratories for individuals who are suspected of COVID-19 by their healthcare provider. This test is only authorized for the duration of the declaration that circumstances exist justifying the authorization of emergency use of in vitro diagnostic tests for detection and/or diagnosis of SARS-CoV-2. Fact sheets for this EUA assay can be found at the following links EUA Fact Sheet for Providers: https://www.fda.gov/media/709543/download EUA Fact Sheet for Patients: https://www.fda.gov/media/374494/download THIS IS A STATE REPORTABLE COMMUNICABLE DISEASE. Test Performed By: [facility] [address] [place] [address] Director: Vania Crook MD Name Value Range Interpretation Code Description Data Angelica rce(s) Supporting Document(s) ID Date Data Source [id number] 07/20/2020 09:30:00 AM EST [facility] Name Value Range Interpretation Code Description Data Angelica rce(s) Supporting Document(s) Respiratory specimen severe acute respir atory syndrome coronavirus 2 (SARS-CoV-2) RNA Negative (qualifier value) [facility]. ID Date Data Source [id number] 07/18/2020 07:44:[address] [facility] Name Value Range Interpretation Code Description Data Angelica rce(s) Supporting Document(s) LAB Glucose,Fingerstick 111 mg/dL 70-110 Above high normal [facility] ID Date Data Source [id number] 07/18/2020 12:26:00 PM [facility] Name: BRUNO PALAFOX : 955 Age/Sex: 65M Ordering Provider: Ashok Diaz MD [facility] Rec #: [id number] Reg Status: [facility] Room #: Date of Service: 07/18/20 Report Number: [id number] cc: Send Report To: [id number] XRP/XR C-Arm LOC Reason for exam: PAIN PROCEDURE FINDINGS: Fluoroscopy was used during the OR procedure performed same date of service. Forcomplete details, please see OP report. Fluoroscopy time in seconds: 11.7 Number of Exposures: 4 Time Portable Image Performed: Contrast Agent in ml: Method of Administration: REPORT SIGNATURE ON FILE Reported By: Ashok Diaz MD 07/18/20 1227 Dictation Date/Time: 07/18/20 0719 Transcribed Date/Time: 07/18/206 Fraud Examiner: LYNN Name Value Range Interpretation Code Description Data Angelica rce(s) Supporting Document(s) ID Date Data Source [id number] 07/13/2020 09:30:00 AM EST [facility] Name Value Range Interpretation Code Description Data Angelica rce(s) Supporting Document(s) Respiratory specimen severe acute respir atory syndrome coronavirus 2 (SARS-CoV-2) RNA Negative (qualifier value) [facility] This lab was ordered by [facility] judith and reported by [facility]. ID Date Data Source [id number] 07/13/2020 06:04:00 PM [facility] COVID-19 Specimen Source NASOPHARYNGEAL Testing was performed using the Biomode - Biomolecular Determination SARS-CoV-2 Assay ([employer]Omics) Methodology: Nucleic Acid Amplification Business Continuity Management Director Mediated Amplification (TMA) and Dual Kinetic Assay (DKA) Negative results do not preclude SARS-CoV-2 infection and should not be used as the sole basis for patient management decisions. Negative results must be combined with clinical observations, patient history, and epidemiological information. This test has been authorized by FDA under an (Emergency Use Authorization) EUA for use by authorized laboratories for individuals who are suspected of COVID-19 by their healthcare provider. This test is only authorized for the duration of the declaration that circumstances exist justifying the authorization of emergency use of in vitro diagnostic tests for detection and/or diagnosis of SARS-CoV-2. Fact sheets for this EUA assay can be found at the following links EUA Fact Sheet for Providers: https://www.fda.gov/media/692884/download EUA Fact Sheet for Patients: https://www.fda.gov/media/292786/download THIS IS A STATE REPORTABLE COMMUNICABLE DISEASE. Name Value Range Interpretation Code Description Data Angelica rce(s) Supporting Document(s) ID Date Data Source [id number] 05/31/2020 05:10:00 AM [facility] Name: BRUNO PALAFOX : 955 Age/Sex: 64M Ordering Provider: Ashok Diaz MD [facility] Rec #: [id number] Reg Status: [facility] Room #: Date of Service: 05/30/20 Report Number: [id number] cc: Send Report To: [id number] XRP/XR C-Arm LOC Reason for exam: PAIN INJECTIONS FINDINGS: Fluoroscopy was used during the OR procedure performed same date of service. Forcomplete details, please see OP report. Fluoroscopy time in seconds: 19.2 Number of Exposures: 3 Time Portable Image Performed: Contrast Agent in ml: Method of Administration: REPORT SIGNATURE ON FILE Reported By: Ashok Diaz MD 05/31/20 0511 Dictation Date/Time: 05/30/20 1310 Transcribed Date/Time: 05/31/20509 Fraud Examiner: LYNN Name Value Range Interpretation Code Description Data Angelica rce(s) Supporting Document(s) ID Date Data Source [id number] 05/26/2020 07:37:00 PM [facility] Name Value Range Interpretation Code Description Data Angelica rce(s) Supporting Document(s) Respiratory specimen severe acute respir atory syndrome coronavirus 2 (SARS-CoV-2) RNA Negative (qualifier value) [facility] This lab was ordered by [facility] and reported by [facility]. ID Date Data Source [id number] 05/26/2020 07:36:[address] [facility] THIS IS A STATE REPORTABLE COMMUNICABLE DISEASE. Testing was performed using the [employer] COVID-19 MDx Assay. This test has been authorized by FDA under an (Emergency Use Authorization) EUA for use by authorized laboratories for individuals who are suspected of COVID-19 by their healthcare provider. This test is only authorized for the duration of the declaration that circumstances exist justifying the authorization of emergency use of in vitro diagnostic tests for detection and/or diagnosis of SARS-CoV-2. Methodology: Endpoint RT-PCR. Fact sheets for this EUA assay can be found at the following links: Providers: https://www.fda.gov/media/244753/download Patients : https://www.fda.gov/media/725318/download THIS IS A [facility] REPORTABLE COMMUNICABLE DISEASE Negative results do not preclude SARS-CoV-2 infection and should not be used as the sole basis for patient management decisions. Negative results must be combined with clinical observations,patient history, and epidemiological information. Name Value Range Interpretation Code Description Data Angelica rce(s) Supporting Document(s) ID Date Data Source [id number] 05/17/2020 11:11:00 AM [employer] ABDOMINAL SERIESThe bowel gas pattern is nonspecific. A moderate to large amount offecal matter is seen in the colon. Phleboliths are seen in the pelvis.Severe spurring is present at the lumbar spine. There is mild jointspace narrowing at bilateral hips. There is some severe spurring at theright acetabulum and moderate at the left. No pneumoperitoneum isidentified. No suspicious calcifications are seen.IMPRESSION: NONSPECIFIC BOWEL GAS PATTERN. MODERATE TO LARGE AMOUNT OFFECAL MATTER IN COLON.Dictated on 05/17/20 1111 by Ger Ybarra M.D.Transcribed on 05/18/20 0814 by John Gregg by Ger Ybarra M.D. on 05/18/20 0955Sign by: Ger Ybarra M.D. Name Value Range Interpretation Code Description Data Angelica rce(s) Supporting Document(s) ID Date Data Source [id number] 05/17/2020 11:11:00 AM EST [employer]. CHEST - FOUR VIEW SERIESComparison is luis fernando de to 07/30/15.PA, lateral, bilateral oblique views were obtained. The heart size iswithin normal limits. There is minimal atelectasis/scar at the rightlower lobe. There are no confluent infiltrates or focal lesions. Nopleural effusion or pneumothorax is seen. The bones are osteopenic.Severe spurring is present at the thoracic spine.IMPRESSION: MINIMAL ATELECTASIS/SCAR AT RIGHT LOWER LOBE. NO ACUTEDISEASE.Dictated on 05/17/20 1111 by Ger Ybarra M.D.Transcribed on 05/18/20 0811 by John Gregg by Ger Ybarra M.D. on 05/18/20 0955Sign by: Ger Ybarra M.D. Name Value Range Interpretation Code Description Data Angelica rce(s) Supporting Document(s) ID Date Data Source [id number] 04/29/2020 12:00:00 AM EST [facility] Name Value Range Interpretation Code Description Data Angelica rce(s) Supporting Document(s) SARS-CoV2 Rapid PCR [facility] This lab was ordered by [facility] and reported by [facility]. ID Date Data Source [id number] 02/09/2020 02:53:00 PM EDT [facility] LEFT FOREARM ULTRASOUNDOn the prior exam , there was a 2.1 x 1 x 2.2 cm complex, hypoechoiclesion in the left forearm near the incision. On today's exam, itmeasures 0.8 x 0.4 cm. There is no evidence for abscess. The remainderof the exam is unremarkable.IMPRESSION: DECREASE IN THE SIZE OF THE PREVIOUSLY PRESENT COLLECTION INTHE LEFT FOREARM. THERE IS NO EVIDENCE FOR ABSCESS.Dictated on 02/09/20 1453 by Mikal Rivera M.D.Transcribed on 02/10/20 06 by Cynthia Rea by Mikal Rivera M.D. on 02/10/20 0907Sign by: Mikal Rivera M.D. Name Value Range Interpretation Code Description Data Angelica rce(s) Supporting Document(s) Procedure Social History No Information Vital Signs ID Date Data Source [id number] 03/23/2021 12:26:00 AM [facility] Name Value Range Interpretation Code Description Data Source(s) Weight (Calculated Kilograms) 100.70 100.70 [facility] Height (Calculated Centimeters) 175.26 175. 26 [facility] Body Mass Index (BMI) 32.8 32.8 [facility] ID Date Data Source [id number] 03/19/2021 12:08:00 AM [facility] Name Value Range Interpretation Code Description Data Source(s) Weight (Calculated Kilograms) 100.70 100.70 [facility] Height (Calculated Centimeters) 175.26 175. 26 [facility] Body Mass Index (BMI) 32.8 32.8 [facility] ID Date Data Source [id number] 03/11/2021 07:40:[address] [facility] Name Value Range Interpretation Code Description Data Source(s) Weight (Calculated Kilograms) 100.70 100.70 [facility] Height (Calculated Centimeters) 175.26 175. 26 [facility] Body Mass Index (BMI) 32.8 32.8 [facility] Weight (Calculated Kilograms) 100.70 100.70 [facility] Height (Calculated Centimeters) 175.26 175. 26 [facility] Body Mass Index (BMI) 32.8 32.8 [facility] ID Date Data Source [id number] 03/11/2021 06:04:00 AM [facility] Name Value Range Interpretation Code Description Data Source(s) Weight (Calculated Kilograms) 100.70 100.70 [facility] Height (Calculated Centimeters) 175.26 175. 26 [facility] Body Mass Index (BMI) 32.8 32.8 [facility] Weight (Calculated Kilograms) 100.70 100.70 [facility] Height (Calculated Centimeters) 175.26 175. 26 [facility] Body Mass Index (BMI) 32.8 32.8 [facility] ID Date Data Source [id number] 03/07/2021 09:28:00 AM [facility] Name Value Range Interpretation Code Description Data Source(s) Weight (Calculated Kilograms) 100.70 100.70 [facility] Height (Calculated Centimeters) 175.26 175. 26 [facility] Body Mass Index (BMI) 32.8 32.8 [facility] ID Date Data Source [id number] 03/07/2021 09:28:00 AM [facility] Name Value Range Interpretation Code Description Data Source(s) Weight (Calculated Kilograms) 100.70 100.70 [facility] Height (Calculated Centimeters) 175.26 175. 26 [facility] Body Mass Index (BMI) 32.8 32.8 [facility] ID Date Data Source [id number] 03/20/2021 12:40:[address] [facility] Name Value Range Interpretation Code Description Data Source(s) Weight (Calculated Kilograms) 100.70 100.70 [facility] Height (Calculated Centimeters) 175.26 175. 26 [facility] Body Mass Index (BMI) 32.8 32.8 [facility] ID Date Data Source [id number] 03/05/2021 09:43:00 AM EDT [facility] Name Value Range Interpretation Code Description Data Source(s) Weight (Calculated Kilograms) 100.70 100.70 [facility] Height (Calculated Centimeters) 175.26 175. 26 [facility] Body Mass Index (BMI) 32.8 32.8 [facility] ID Date Data Source [id number] [facility] Interpretation Code Description Data Source(s) Weight (Calculated Kilograms) 100.70 100.70 [facility] Height (Calculated Centimeters) 175.26 175. 26 [facility] Body Mass Index (BMI) 32.8 32.8 [facility] ID Date Data Source [id number] 02/13/2021 09:09:00 AM [facility] Name Value Range Interpretation Code Description Data Source(s) Weight (Calculated Kilograms) 100.70 100.70 [facility] Weight 3440 3440 [facility] Height (Calculated Centimeters) 175.26 175. 26 [facility] Height 69 69 [facility] Body Mass Index (BMI) 32.8 32.8 [facility] Weight (Calculated Kilograms) 100.70 100.70 [facility] Weight 3520 3520 [facility] Temperature 97.7 97.7 [facility] Respiratory Effort 1 1 [facility] Respiratory Rate 18 18 [facility] Pulse Rate 69 69 [facility] Height (Calculated Centimeters) 175.26 175. 26 [facility] Height 69 69 [facility] Blood Pressure 156/80 156/80 [facility] Body Mass Index (BMI) 32.8 32.8 [facility] Weight (Calculated Kilograms) 100.70 100.70 [facility] Weight 3520 3520 [facility] Temperature 97.7 97.7 [facility] Respiratory Effort 1 1 [facility] Respiratory Rate 18 18 [facility] Pulse Rate 69 69 [facility] Height (Calculated Centimeters) 175.26 175. 26 [facility] Height 69 69 [facility] Blood Pressure 156/80 156/80 [facility] Body Mass Index (BMI) 32.8 32.8 [facility] Weight (Calculated Kilograms) 100.70 100.70 [facility] Weight 3440 3440 [facility] Height (Calculated Centimeters) 175.26 175. 26 [facility] Height 69 69 [facility] Body Mass Index (BMI) 32.8 32.8 [facility] ID Date Data Source [id number] 01/27/2021 12:05:00 AM EDT [facility] Name Value Range Interpretation Code Description Data Source(s) Weight (Calculated Kilograms) 100.70 100.70 [facility] Height (Calculated Centimeters) 175.26 175. 26 [facility] Body Mass Index (BMI) 32.8 32.8 [facility] Weight (Calculated Kilograms) 100.70 100.70 [facility] Height (Calculated Centimeters) 175.26 175. 26 [facility] Body Mass Index (BMI) 32.8 32.8 [facility] ID Date Data Source [id number] 03/07/2021 12:14:00 AM EDT [facility] Name Value Range Interpretation Code Description Data Source(s) Weight (Calculated Kilograms) 100.70 100.70 [facility] Height (Calculated Centimeters) 175.26 175. 26 [facility] Body Mass Index (BMI) 32.8 32.8 [facility] Weight (Calculated Kilograms) 100.70 100.70 [facility] Height (Calculated Centimeters) 175.26 175. 26 [facility] Body Mass Index (BMI) 32.8 32.8 [facility] ID Date Data Source [id number] 01/16/2021 01:05:00 PM [facility] Name Value Range Interpretation Code Description Data Source(s) Weight (Calculated Kilograms) 100.70 100.70 [facility] Height (Calculated Centimeters) 175.26 175. 26 [facility] Body Mass Index (BMI) 32.8 32.8 [facility] ID Date Data Source [id number] 03/07/2021 12:14:00 AM [facility] Name Value Range Interpretation Code Description Data Source(s) Weight (Calculated Kilograms) 100.70 100.70 [facility] Height (Calculated Centimeters) 175.26 175. 26 [facility] Body Mass Index (BMI) 32.8 32.8 [facility] Weight (Calculated Kilograms) 100.70 100.70 [facility] Height (Calculated Centimeters) 175.26 175. 26 [facility] Body Mass Index (BMI) 32.8 32.8 [facility] Weight (Calculated Kilograms) 100.70 100.70 [facility] Height (Calculated Centimeters) 175.26 175. 26 [facility] Body Mass Index (BMI) 32.8 32.8 [facility] Weight (Calculated Kilograms) 100.70 100.70 [facility] Height (Calculated Centimeters) 175.26 175. 26 [facility] Body Mass Index (BMI) 32.8 32.8 [facility] ID Date Data Source [id number] 03/07/2021 09:28:00 AM [facility] Name Value Range Interpretation Code Description Data Source(s) Weight (Calculated Kilograms) 100.70 100.70 [facility] Height (Calculated Centimeters) 175.26 175. 26 [facility] Body Mass Index (BMI) 32.8 32.8 [facility] ID Date Data Source [id number] 03/07/2021 12:14:00 AM [facility] Name Value Range Interpretation Code Description Data Source(s) Weight (Calculated Kilograms) 100.70 100.70 [facility] Height (Calculated Centimeters) 175.26 175. 26 [facility] Body Mass Index (BMI) 32.8 32.8 [facility] ID Date Data Source [id number] 02/13/2021 08:43:00 AM EDT [facility] Name Value Range Interpretation Code Description Data Source(s) Weight (Calculated Kilograms) 100.70 100.70 [facility] Height (Calculated Centimeters) 175.26 175. 26 [facility] Body Mass Index (BMI) 32.8 32.8 [facility] ID Date Data Source [id number] 12/03/2020 06:59:[address] [facility] Name Value Range Interpretation Code Description Data Source(s) Weight (Calculated Kilograms) 100.70 100.70 [facility] Height (Calculated Centimeters) 175.26 175. 26 [facility] Body Mass Index (BMI) 32.8 32.8 [facility] ID Date Data Source [id number] 09/28/2020 12:26:00 PM EDT [facility] Name Value Range Interpretation Code Description Data Source(s) Weight Measurement Method 1 1 [facility] Weight (Calculated Kilograms) 100.70 100.70 [facility] Weight 3600 3600 [facility] Temperature 98.4 98.4 [facility] Respiratory Effort 1 1 [facility] Respiratory Rate 20 20 [facility] Pulse Rate 89 89 [facility] Height (Calculated Centimeters) 175.26 175. 26 [facility] Height 69 69 [facility] Blood Pressure 155/81 155/81 [facility] Body Mass Index (BMI) 32.8 32.8 [facility] Weight Measurement Method 1 1 [facility] Weight (Calculated Kilograms) 100.70 100.70 [facility] Weight 3600 3600 [facility] Temperature 98.4 98.4 [facility] Respiratory Effort 1 1 [facility] Respiratory Rate 20 20 [facility] Pulse Rate 89 89 [facility] Height (Calculated Centimeters) 175.26 175. 26 [facility] Height 69 69 [facility] Blood Pressure 155/81 155/81 [facility] Body Mass Index (BMI) 32.8 32.8 [facility] Weight (Calculated Kilograms) 100.70 100.70 [facility] Height (Calculated Centimeters) 175.26 175. 26 [facility] Body Mass Index (BMI) 32.8 32.8 [facility] Weight (Calculated Kilograms) 100.70 100.70 [facility] Height (Calculated Centimeters) 175.26 175. 26 [facility] Body Mass Index (BMI) 32.8 32.8 [facility] ID Date Data Source [id number] 08/17/2020 12:42:00 AM EDT [facility] Name Value Range Interpretation Code Description Data Source(s) Weight (Calculated Kilograms) 100.70 100.70 [facility] Height (Calculated Centimeters) 175.26 175. 26 [facility] Body Mass Index (BMI) 32.8 32.8 [facility] ID Date Data Source [id number] 10/31/2020 03:10:00 PM EDT [facility] Name Value Range Interpretation Code Description Data Source(s) Weight (Calculated Kilograms) 100.70 100.70 [facility] Height (Calculated Centimeters) 175.26 175. 26 [facility] Body Mass Index (BMI) 32.8 32.8 [facility] Weight (Calculated Kilograms) 100.70 100.70 [facility] Height (Calculated Centimeters) 175.26 175. 26 [facility] Body Mass Index (BMI) 32.8 32.8 [facility] ID Date Data Source [id number] 10/29/2020 07:46:00 PM [facility] Name Value Range Interpretation Code Description Data Source(s) Weight (Calculated Kilograms) 100.70 100.70 [facility] Height (Calculated Centimeters) 175.26 175. 26 [facility] Body Mass Index (BMI) 32.8 32.8 [facility] Weight (Calculated Kilograms) 100.70 100.70 [facility] Height (Calculated Centimeters) 175.26 175. 26 [facility] Body Mass Index (BMI) 32.8 32.8 [facility] Weight (Calculated Kilograms) 100.70 100.70 [facility] Height (Calculated Centimeters) 175.26 175. 26 [facility] Body Mass Index (BMI) 32.8 32.8 [facility] Weight (Calculated Kilograms) 100.70 100.70 [facility] Height (Calculated Centimeters) 175.26 175. 26 [facility] Body Mass Index (BMI) 32.8 32.8 [facility] ID Date Data Source [id number] 07/20/2020 04:54:[address] [facility] Name Value Range Interpretation Code Description Data Source(s) Weight (Calculated Kilograms) 100.70 100.70 [facility] Height (Calculated Centimeters) 175.26 175. 26 [facility] Body Mass Index (BMI) 32.8 32.8 [facility] Weight (Calculated Kilograms) 100.70 100.70 [facility] Height (Calculated Centimeters) 175.26 175. 26 [facility] Body Mass Index (BMI) 32.8 32.8 [facility] ID Date Data Source [id number] 08/27/2020 01:58:00 PM EDT [facility] Name Value Range Interpretation Code Description Data Source(s) Weight (Calculated Kilograms) 100.70 100.70 [facility] Height (Calculated Centimeters) 175.26 175. 26 [facility] Body Mass Index (BMI) 32.8 32.8 [facility] Weight Measurement Method 1 1 [facility] Weight (Calculated Kilograms) 100.70 100.70 [facility] Weight 3680 3680 [facility] Temperature 97.2 97.2 [facility] Respiratory Effort 1 1 [facility] Respiratory Rate 18 18 [facility] Pulse Rate 76 76 [facility] Height (Calculated Centimeters) 175.26 175. 26 [facility] Height 69 69 [facility] Blood Pressure 169/90 169/90 [facility] Body Mass Index (BMI) 32.8 32.8 [facility] Weight Measurement Method 1 1 [facility] Weight (Calculated Kilograms) 100.70 100.70 [facility] Weight 3680 3680 [facility] Temperature 97.2 97.2 [facility] Respiratory Effort 1 1 [facility] Respiratory Rate 18 18 [facility] Pulse Rate 76 76 [facility] Height (Calculated Centimeters) 175.26 175. 26 [facility] Height 69 69 [facility] Blood Pressure 169/90 169/90 [facility] Body Mass Index (BMI) 32.8 32.8 [facility] Weight (Calculated Kilograms) 100.70 100.70 [facility] Height (Calculated Centimeters) 175.26 175. 26 [facility] Body Mass Index (BMI) 32.8 32.8 [facility] ID Date Data Source [id number] 09/20/2020 01:23:00 PM EDT [facility] Name Value Range Interpretation Code Description Data Source(s) Weight (Calculated Kilograms) 100.70 100.70 [facility] Height (Calculated Centimeters) 175.26 175. 26 [facility] Body Mass Index (BMI) 32.8 32.8 [facility] Weight (Calculated Kilograms) 100.70 100.70 [facility] Height (Calculated Centimeters) 175.26 175. 26 [facility] Body Mass Index (BMI) 32.8 32.8 [facility] ID Date Data Source [id number] 08/06/2020 09:19:00 AM EDT [facility] Name Value Range Interpretation Code Description Data Source(s) Weight (Calculated Kilograms) 100.70 100.70 [facility] Height (Calculated Centimeters) 175.26 175. 26 [facility] Body Mass Index (BMI) 32.8 32.8 [facility] ID Date Data Source [id number] 06/14/2020 11:12:00 AM EST [facility] Name Value Range Interpretation Code Description Data Source(s) Weight (Calculated Kilograms) 100.70 100.70 [facility] Height (Calculated Centimeters) 175.26 175. 26 [facility] Body Mass Index (BMI) 32.8 32.8 [facility] Weight (Calculated Kilograms) 100.70 100.70 [facility] Weight 3552 3552 [facility] Temperature 98.1 98.1 [facility] Respiratory Effort 1 1 [facility] Respiratory Rate 18 18 [facility] Pulse Rate 74 74 [facility] Height (Calculated Centimeters) 175.26 175. 26 [facility] Height 68 68 [facility] Blood Pressure 158/84 158/84 [facility] Body Mass Index (BMI) 32.8 32.8 [facility] Weight (Calculated Kilograms) 100.70 100.70 [facility] Weight 3552 3552 [facility] Temperature 98.1 98.1 [facility] Respiratory Effort 1 1 [facility] Respiratory Rate 18 18 [facility] Pulse Rate 74 74 [facility] Height (Calculated Centimeters) 175.26 175. 26 [facility] Height 68 68 [facility] Blood Pressure 158/84 158/84 [facility] Body Mass Index (BMI) 32.8 32.8 [facility] Weight (Calculated Kilograms) 100.70 100.70 [facility] Weight 3552 3552 [facility] Height (Calculated Centimeters) 175.26 175. 26 [facility] Height 68 68 [facility] Body Mass Index (BMI) 32.8 32.8 [facility] ID Date Data Source [id number] 05/26/2020 07:36:00 PM [facility] Name Value Range Interpretation Code Description Data Source(s) Weight (Calculated Kilograms) 100.70 100.70 [facility] Height (Calculated Centimeters) 175.26 175. 26 [facility] Body Mass Index (BMI) 32.8 32.8 [facility] Weight (Calculated Kilograms) 100.70 100.70 [facility] Height (Calculated Centimeters) 175.26 175. 26 [facility] Body Mass Index (BMI) 32.8 32.8 [facility] ID Date Data Source [id number] 05/17/2020 06:58:00 AM [facility] Name Value Range Interpretation Code Description Data Source(s) Weight (Calculated Kilograms) 100.70 100.70 [facility] Height (Calculated Centimeters) 175.26 175. 26 [facility] Body Mass Index (BMI) 32.8 32.8 [facility] ID Date Data Source [id number] 02/01/2020 09:36:[address] [facility] Name Value Range Interpretation Code Description Data Source(s) Weight (Calculated Kilograms) 100.70 100.70 [facility] Height (Calculated Centimeters) 175.26 175. 26 [facility] Body Mass Index (BMI) 32.8 32.8 [facility] Weight (Calculated Kilograms) 100.70 100.70 [facility] Height (Calculated Centimeters) 175.26 175. 26 [facility] Body Mass Index (BMI) 32.8 32.8 [facility] Weight (Calculated Kilograms) 100.70 100.70 [facility] Height (Calculated Centimeters) 175.26 175. 26 [facility] [place] Body Mass Index (BMI) 32.8 32.8 [facility]
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
[2021-03-29] MEDS ORDERED: CYCL-707 PO (19:08)
[2021-03-29 19:44] VITALS: BP 164/80
== END 2021-03-29 19:55 | disposition home or self-care (01) ==
LOC: M ED 13:22
DX: S13.4XXA Sprain of ligaments of cervical spine, initial encounter (principal); V49.49XA Driver injured in collision with other motor vehicles in traffic accident, initial encounter; Y92.410 Unspecified street and highway as the place of occurrence of the external cause; E11.9 Type 2 diabetes mellitus without complications; I10 Essential (primary) hypertension; E78.5 Hyperlipidemia, unspecified; F33.9 Major depressive disorder, recurrent, unspecified; F41.9 Anxiety disorder, unspecified; Z86.16 Personal history of COVID-19; Z79.899 Other long term (current) drug therapy; Z79.82 Long term (current) use of aspirin; Z79.01 Long term (current) use of anticoagulants